=== PATIENT | female | born 1950 | race Caucasian/White ===

== ENCOUNTER 2017-10-12 07:31 | Outpatient (CLI) | payer BC ==
--- NOTE | 2017-10-12 11:10 | RAD ---
SMALL BOWEL FOLLOW-THROUGH: HISTORY: Epigastric abdominal pain. COMPARISON: None. FINDINGS: A small bowel follow-through was performed with barium. The contrast passed through the small bowel to the colon by 1.5 hours. The small bowel loops were normal in caliber without significant irregula rity. The small bowel loops are mobile. IMPRESSION: Unremarkable small bowel follow-through. POS: JOE
== END 2017-10-12 07:32 | disposition home or self-care (01) ==
LOC: RAD 07:31
PROVIDERS: ATTEND Internal Medicine Gastroenterology
DX: R10.13 Epigastric pain (principal)
CPT/HCPCS: 74250

== ENCOUNTER 2018-02-12 08:09 | Outpatient (CLI) | payer BC ==
--- NOTE | 2018-02-12 10:38 | ULT ---
COMPLETE ABDOMINAL ULTRASOUND: HISTORY: Abdominal pain. COMPARISON: None. TECHNIQUE: Multiplanar vallecillo-scale and color Doppler images were obtained in a complete abdominal ultrasound. FINDINGS: The liver is normal in echogenicity without focal lesions or intrahepatic ductal dilatation. The gal lbladder has been removed. The common bile duct is normal, measuring 5 mm. The aorta and inferior vena cava are normal in caliber. The visualized portions of the pancreas are unremarkable. The spleen is normal in echogenicity without focal lesions and measures 9.4 cm in erwin th. Both kidneys are normal in echogenicity without hydronephrosis or calculi and measures 9.4 and 9.3 cm in length on the right and left, respectively. IMPRESSION: Unremarkable exam. POS: JOEH
== END 2018-02-12 08:10 | disposition home or self-care (01) ==
LOC: SCSULT 08:09
PROVIDERS: ATTEND Internal Medicine Gastroenterology
DX: K21.9 Gastro-esophageal reflux disease without esophagitis (principal); R10.10 Upper abdominal pain, unspecified; K90.89 Other intestinal malabsorption
CPT/HCPCS: 76700

== ENCOUNTER 2018-07-27 08:47 | Outpatient (CLI) | payer BC | END 2018-07-27 08:48 | disposition home or self-care (01) | LOC: BICMAMMO 08:47 | PROVIDERS: ATTEND Obstetrics & Gynecology | DX: Z12.31 Encounter for screening mammogram for malignant neoplasm of breast (principal); R92.1 Mammographic calcification found on diagnostic imaging of breast | CPT/HCPCS: 77063; 77067 ==

== ENCOUNTER 2019-07-28 08:07 | Outpatient (CLI) | payer OTHER ==
--- NOTE | 2019-07-28 08:58 | MMO ---
Bilateral MAMMO Bilat Screen [facility]. CLINICAL HISTORY: Patient is 69 years old and is seen for screening. The patient has no family history of breast cancer. The patient has no personal history of cancer. The patient has a history of bilateral Implants in 1980s. VIEWS: The views performed were: bilateral craniocaudal with tomosynthesis and bilateral mediolateral oblique with tomosynthesis. FILMS COMPARED: The present examination has been compared to prior imaging studies performed at [place] on 07/27/2018. This study has been interpreted with the assistance of computer-aided detection. MAMMOGRAM FINDINGS: There are scattered fibroglandular densities. Finding 1: Stable implants are present. Finding 2: There are benign appearing calcifications seen in the left breast. There are no suspicious masses, suspicious calcifications, or new areas of architectural distortion. IMPRESSION: THERE IS NO MAMMOGRAPHIC EVIDENCE OF MALIGNANCY. A ROUTINE FOLLOW-UP MAMMOGRAM IN 1 YEAR IS RECOMMENDED. THE RESULTS OF THIS EXAM WERE SENT TO THE PATIENT. ACR BI-RADS Category 2 - Benign finding MAMMOGRAPHY NOTE: 1. A negative mammogram report should not delay a biopsy if a dominant of clinically suspicious mass is present. 2. Approximately 10% to 15% of breast cancers are not detected by mammography. 3. Adenosis and dense breasts may obscure an underlying neoplasm. Reported by: GUERA GROVES MD Electonically Signed: [id number]
== END 2019-07-28 08:08 | disposition home or self-care (01) ==
LOC: BICMAMMO 08:07
PROVIDERS: ATTEND Obstetrics & Gynecology
DX: Z12.31 Encounter for screening mammogram for malignant neoplasm of breast (principal); Z98.82 Breast implant status
CPT/HCPCS: 77063; 77067